=== PATIENT | male | born 1985 | race Caucasian/White ===

== ENCOUNTER 2020-09-29 01:58 | Emergency (ER) | payer BC ==
[2020-09-29] MEDS ORDERED: MORPHINE SULFATE 4 MG/ML SYRINGE IV STA (02:02)
[2020-09-29] MEDS ORDERED: SODIUM CHLORIDE 0.9% 1,000 ML IV STA (02:02)
[2020-09-29] MEDS ORDERED: PANTOPRAZOLE 40 MG/10 ML VIAL IVP STA (02:02)
[2020-09-29] MEDS ORDERED: ONDANSETRON 4 MG/2 ML VIAL IVP STA (02:02)
--- NOTE | 2020-09-29 02:03 | ED ---
Abdominal Pain HPI - General Stated Complaint: Abd Pain Time Seen by Provider: 09/29/20 02:01 - Related Data Home Medications Medication Instructions Recorded Confirmed Dextroamphetamine/Amphetamine 20 mg PO BID 04/19/16 04/19/16 [Adderall] Pantoprazole Sodium [Protonix] 40 mg PO DAILY 04/19/16 04/19/16 Zolpidem [Ambien] 12.5 mg PO HS PRN 04/19/16 04/19/16 Previous Rx's Medication Instructions Recorded Dicyclomine HCl [Bentyl] 20 mg PO QID #10 tab 04/19/16 Ondansetron Odt [Zofran Odt] 4 mg PO Q8HR PRN #10 tab 04/19/16 Allergies Allergy/AdvReac Type Severity Reaction Status Date / Time bee venom protein (honey bee) AdvReac Swelling Verified 09/29/20 02:24 tree nut AdvReac Swelling Verified 09/29/20 02:24 Review of Systems ROS Statement: Those systems with pertinent positive or pertinent negative responses have been documented in the HPI. ROS Other: All systems not noted in ROS Statement are negative. Past Medical History Past Medical History: Asthma Additional Past Medical History / Comment(s): stomach ulcers, hernias History of Any Multi-Drug Resistant Organisms: None Reported Past Surgical History: No Surgical Hx Reported Past Psychological History: Anxiety, No Psychological Hx Reported Course Vital Signs 09/29/20 09/29/20 01:59 03:42 Temperature 97.7 F Pulse Rate 80 81 Respiratory 18 18 Rate Blood Pressure 128/82 110/68 O2 Sat by Pulse 98 96 Oximetry Medical Decision Making - Lab Data Result diagrams: 09/29/20 02:18 09/29/20 02:18 Lab Results 09/29/20 09/29/20 Range/Units 02:18 02:18 WBC 16.2 H (3.8-10.6) k/uL RBC 5.41 (4.30-5.90) m/uL Hgb 16.2 (13.0-17.5) gm/dL Hct 47.8 (39.0-53.0) % MCV 88.2 (80.0-100.0) fL MCH 30.0 (25.0-35.0) pg MCHC 34.0 (31.0-37.0) g/dL RDW 13.3 (11.5-15.5) % Plt Count 279 (150-450) k/uL MPV 8.2 Neutrophils % 66 % Lymphocytes % 23 % Monocytes % 6 % Eosinophils % 2 % Basophils % 1 % Neutrophils # 10.6 H (1.3-7.7) k/uL Lymphocytes # 3.8 (1.0-4.8) k/uL Monocytes # 1.0 (0-1.0) k/uL Eosinophils # 0.3 (0-0.7) k/uL Basophils # 0.2 (0-0.2) k/uL Sodium 139 (137-145) mmol/L Potassium 4.8 (3.5-5.1) mmol/L Chloride 104 (98-107) mmol/L Carbon Dioxide 24 (22-30) mmol/L Anion Gap 11 mmol/L BUN 10 (9-20) mg/dL Creatinine 0.76 (0.66-1.25) mg/dL Est GFR (CKD-EPI)AfAm >90 (>60 ml/min/1.73 sqM) Est GFR (CKD-EPI)NonAf >90 (>60 ml/min/1.73 sqM) Glucose 106 H (74-99) mg/dL Calcium 9.8 (8.4-10.2) mg/dL Total Bilirubin 0.4 (0.2-1.3) mg/dL AST 46 (17-59) U/L ALT 49 (4-49) U/L Alkaline Phosphatase 84 (38-126) U/L Total Protein 7.1 (6.3-8.2) g/dL Albumin 4.7 (3.5-5.0) g/dL Amylase 52 (30-110) U/L Lipase 88 (23-300) U/L Disposition Clinical Impression: Abdominal pain Disposition: HOME SELF-CARE Condition: Good Instructions (If sedation given, give patient instructions): Abdominal Pain (ED) Is patient prescribed a controlled substance at d/c from ED?: No Referrals: Dustin Arciniega MD [Primary Care Provider] - 1-2 days
[2020-09-29 02:08] VITALS: TEMP 97.7
[2020-09-29 02:33] LABS: Basophils # (A) 0.2 k/uL (0-0.2); Basophils % (A) 1 %; Eosinophils # (A) 0.3 k/uL (0-0.7); Eosinophils % (A) 2 %; HCT 47.8 % (39.0-53.0); HGB 16.2 gm/dL (13.0-17.5); Lymphocytes # (A) 3.8 k/uL (1.0-4.8); Lymphocytes % (A) 23 %; MCV 88.2 fL (80.0-100.0); Mean Platelet Volume 8.2; Monocytes % (A) 6 %; Neutrophils # (A) 10.6 k/uL (1.3-7.7); Neutrophils % (A) 66 %; Platelet Count 279 k/uL (150-450); RBC 5.41 m/uL (4.30-5.90); RDW 13.3 % (11.5-15.5); WBC 16.2 k/uL (3.8-10.6)
[2020-09-29 02:35] LABS: ALT 49 U/L (4-49); AST 46 U/L (17-59); African American GFR (CKD) >90 (>60 ml/min/1.73 sqM); Albumin 4.7 g/dL (3.5-5.0); Alkaline Phosphatase 84 U/L (38-126); Amylase 52 U/L (30-110); Anion Gap 11 mmol/L; Blood Urea Nitrogen 10 mg/dL (9-20); Calcium 9.8 mg/dL (8.4-10.2); Carbon Dioxide 24 mmol/L (22-30); Chloride 104 mmol/L (98-107); Glucose 106 mg/dL (74-99); Lipase 88 U/L (23-300); Non-African American GFR(CKD) >90 (>60 ml/min/1.73 sqM); Potassium 4.8 mmol/L (3.5-5.1); Sodium 139 mmol/L (137-145); Total Bilirubin 0.4 mg/dL (0.2-1.3); Total Protein 7.1 g/dL (6.3-8.2)
[2020-09-29] MEDS ORDERED: MAG HYDROX/AL HYDROX/SIMETH 30 ML, HYOSCYAMINE ELIXIR 10 ML, LIDOCAINE VISCOUS 2% 10 ML PO STA ×3 (04:21)
--- NOTE | 2020-09-29 04:43 | CT ---
EXAM: CT Abdomen and Pelvis With Intravenous Contrast CLINICAL HISTORY: ITS.REASON CT Reason: pain TECHNIQUE: Axial computed tomography images of the abdomen and pelvis with intravenous contrast. CTDI is 47.17 mGy and DLP is 2431.5 mGy-cm. This CT exam was performed using one or more of the following dose reduction techniques: automated exposure control, adjustment of the mA and/or kV according to patient size, and/or use of iterative reconstruction technique. COMPARISON: No relevant prior studies available. FINDINGS: Lung bases: Bibasilar atelectasis. ABDOMEN: Liver: Hepatic steatosis. Gallbladder and bile ducts: Unremarkable. Pancreas: Unremarkable. Spleen: Unremarkable. Adrenals: Unremarkable. Kidneys and ureters: Unremarkable. Stomach and bowel: Unremarkable. PELVIS: Appendix: No findings to suggest acute appendicitis. Bladder: Unremarkable. Reproductive: Unremarkable as visualized. ABDOMEN and PELVIS: Intraperitoneal space: Unremarkable. Bones/joints: No acute fracture. No dislocation. Soft tissues: Unremarkable. Vasculature: Vascular calcifications. Lymph nodes: Unremarkable. IMPRESSION: No acute findings in the abdomen or pelvis.
[2020-09-29 05:08] VITALS: BP 113/63; PULSE 100; RESP 16
--- NOTE | 2020-09-29 07:20 | XR ---
KUB HISTORY: Pain KUB submitted on [address] scan 09/29/2020 There are phleboliths within the pelvis. No evident bowel obstruction or pneumoperitoneum. Bone fur examiner alization is within normal limits. Lung bases are remarkable for probable basilar atelectatic change. The entire abdomen is not included on exam. IMPRESSION: Incomplete exam, see dictated report CT scan same date. Basilar atelectasis.
== END 2020-09-29 05:35 | disposition home or self-care (01) ==
LOC: EC 01:58
DX: R10.9 Unspecified abdominal pain (principal); J45.909 Unspecified asthma, uncomplicated; F41.9 Anxiety disorder, unspecified
CPT/HCPCS: 36415; 80053; 82150; 83690; 85025; 74018; 74177; 99285; 96374; 96375; J2270; C9113; Q9967; 96361

== ENCOUNTER 2020-11-25 23:35 | Inpatient (IN) | payer BC, OTHER ==
[2020-11-25 23:43] LABS: Glucose,Whole Blood 110 mg/dL (75-99)
[2020-11-25] MEDS ORDERED: SODIUM CHLORIDE 0.9% 1,000 ML IV STA (23:45)
[2020-11-25] MEDS ORDERED: HYDROmorphone 1 MG/ML 1 ML SYRINGE IVP STA (23:47)
[2020-11-25] MEDS ORDERED: LORazepam 2 MG/ML INJ IV STA (23:47)
[2020-11-25] MEDS ORDERED: DIPH,PERTUS(ACELL)TETVAC-LF 0.5 ML VIAL IM ONE (23:48)
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
[2020-11-26] MEDS ORDERED: HYDROmorphone 1 MG/ML 1 ML SYRINGE IVP STA ×3 (00:05→04:38)
[2020-11-26 00:29] LABS: Basophils # (A) 0.2 k/uL (0-0.2); Basophils % (A) 1 %; Eosinophils # (A) 0.1 k/uL (0-0.7); Eosinophils % (A) 0 %; HCT 47.8 % (39.0-53.0); HGB 15.8 gm/dL (13.0-17.5); Lymphocytes # (A) 3.8 k/uL (1.0-4.8); Lymphocytes % (A) 19 %; MCH 30.4 pg (25.0-35.0); MCV 92.2 fL (80.0-100.0); Mean Platelet Volume 8.2; Monocytes # (A) 1.3 k/uL (0-1.0); Monocytes % (A) 6 %; Neutrophils # (A) 14.9 k/uL (1.3-7.7); Neutrophils % (A) 73 %; Platelet Count 284 k/uL (150-450); RBC 5.18 m/uL (4.30-5.90); RDW 13.7 % (11.5-15.5); WBC 20.6 k/uL (3.8-10.6)
[2020-11-26 00:43] LABS: ALT 57 U/L (4-49); AST 71 U/L (17-59); African American GFR (CKD) >90 (>60 ml/min/1.73 sqM); Albumin 4.1 g/dL (3.5-5.0); Alcohol 12 mg/dL; Alkaline Phosphatase 82 U/L (38-126); Anion Gap 12 mmol/L; Blood Urea Nitrogen 16 mg/dL (9-20); Calcium 9.3 mg/dL (8.4-10.2); Carbon Dioxide 21 mmol/L (22-30); Chloride 105 mmol/L (98-107); Creatine Kinase 345 U/L (55-170); Glucose 114 mg/dL (74-99); Non-African American GFR(CKD) >90 (>60 ml/min/1.73 sqM); Potassium 4.1 mmol/L (3.5-5.1); Sodium 138 mmol/L (137-145); Total Bilirubin 0.2 mg/dL (0.2-1.3); Total Protein 6.4 g/dL (6.3-8.2)
[2020-11-26] MEDS ORDERED: KETOROLAC 15 MG/ML 1 ML VIAL IVP STA (00:44)
[2020-11-26] MEDS ORDERED: ACETAMINOPHEN IV (For NPO) 1,000 MG in EMPTY BAG 1 BAG IVPB STA (00:44)
[2020-11-26] MEDS ORDERED: DIAZEPAM 5 MG/ML 2 ML INJ IVP STA (00:44)
[2020-11-26] MEDS ORDERED: LORazepam 2 MG/ML INJ IV PRN ×2 (00:49)
[2020-11-26] MEDS ORDERED: THIAMINE 100 MG/ML 2 ML VIAL IM STA (00:49)
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
--- NOTE | 2020-11-26 01:07 | XR ---
EXAMINATION TYPE: XR foot complete RT DATE OF EXAM: 11/26/2020 COMPARISON: NONE HISTORY: Pain TECHNIQUE: 3 views FINDINGS: There is an Achilles calcaneal spur. Metatarsals are intact. There is comminuted fracture of the base of the proximal phalanx of the little toe right foot. There is no dislocation. There is no significant displacement. IMPRESSION: Comminuted intra-articular fracture of the little toe at the base of the proximal phalanx .
--- NOTE | 2020-11-26 01:08 | XR ---
EXAMINATION TYPE: XR wrist complete RT DATE OF EXAM: 11/26/2020 COMPARISON: NONE HISTORY: Pain TECHNIQUE: 4 views FINDINGS: Carpal bones are intact. I see no fracture nor dislocation. Scaphoid appears normal. IMPRESSION: Negative right wrist exam.
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
[2020-11-26 02:02] LABS: INR 0.9 (<1.2); Partial Thromboplastin Time 23.2 sec (22.0-30.0)
[2020-11-26] MEDS ORDERED: KETAMINE 10 MG/ML 20 ML VIAL IV ONE ×3 (02:07→04:19)
[2020-11-26] MEDS ORDERED: KETOROLAC 15 MG/ML 1 ML VIAL IVP PRN (02:20)
[2020-11-26] MEDS ORDERED: ONDANSETRON 4 MG/2 ML VIAL IVP PRN (02:20)
[2020-11-26] MEDS ORDERED: NALOXONE 0.4 MG/ML 1 ML VIAL IV PRN (02:20)
[2020-11-26 03:54] LABS: Appearance,Urine Clear (Clear); Bilirubin,Urine Negative (Negative); Blood,Urine Negative (Negative); Color,Urine Yellow; Glucose,Urine (UA) Negative (Negative); Ketones,Urine Negative (Negative); Leukocyte Esterase,Urine Negative (Negative); Nitrite,Urine Negative (Negative); Protein,Urine Trace (Negative); Urobilinogen,Urine <2.0 mg/dL (<2.0)
[2020-11-26 03:58] LABS: Amphetamine Screen,Urine Not Detected (NotDetected); Barbiturate Screen,Urine Not Detected (NotDetected); Benzodiazepines Screen,Urine Detected (NotDetected); Cocaine Screen,Urine Not Detected (NotDetected); Methadone Screen, Urine Not Detected (NotDetected); Opiate Screen,Urine Detected (NotDetected); Oxycodone Screen, Urine Not Detected (NotDetected); Phencyclidine Screen,Urine Not Detected (NotDetected); Tricyclic Antidepressant,Urine Detected (NotDetected); Urn Cannabinoid Scrn Not Detected (NotDetected)
[2020-11-26 03:59] LABS: Specific Gravity,Urine >1.050 (1.001-1.035)
[2020-11-26] MEDS: SODIUM CHLORIDE 0.9% 1,000 ML IV SCH ×3 (05:08→20:25)
[2020-11-26] MEDS: HYDROmorphone 1 MG/ML 1 ML SYRINGE IVP PRN ×4 (09:06→20:23)
[2020-11-26] MEDS: IPRATROPIUM-ALBUTEROL 3 ML NEB INHALATION SCH ×3 (10:55→21:45)
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
[2020-11-26] MEDS ORDERED: BACITRACIN OINT 1 EACH PACKET TOPICAL SCH (13:45)
[2020-11-26] MEDS: PANTOPRAZOLE 40 MG TABLET PO SCH (13:49)
[2020-11-26] MEDS: NICOTINE 21MG/24HR PATCH TRANSDERM SCH (13:49)
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
[2020-11-26] MEDS: PETROLAT,WHITE/LAN/8-HYDROXYQU 227 GM OINT TOPICAL SCH (17:30)
[2020-11-26] MEDS: BACITRACIN ZINC 500 UNIT/GM OINT 28.4 GM TUBE TOPICAL SCH (17:30)
[2020-11-26] MEDS: THIAMINE 100 MG TAB PO SCH (18:09)
[2020-11-26] MEDS: HYDROcodone/APAP 5-325MG 1 EACH TAB PO PRN (19:03)
[2020-11-26] MEDS: ACETAMINOPHEN TAB 325 MG TAB PO PRN (19:03)
[2020-11-26] MEDS: FAMOTIDINE 20 MG TAB PO SCH (22:07)
[2020-11-26] MEDS: busPIRone HCl 5 MG TAB PO SCH (22:07)
[2020-11-26] MEDS: MIRTAZAPINE 15 MG TAB PO SCH (22:07)
[2020-11-26] MEDS: MONTELUKAST 10 MG TAB PO SCH (22:08)
[2020-11-26] MEDS: HEPARIN SODIUM,PORCINE/PF 5,000 UNIT/0.5 ML SYRINGE SQ SCH (22:08)
[2020-11-26] MEDS: hydrOXYzine pamoate 25 MG CAP PO PRN (22:12)
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
[2020-11-26] MEDS: QUEtiapine 100 MG TAB PO SCH (22:58)
[2020-11-26] MEDS ORDERED: HYDROmorphone 1 MG/ML 1 ML SYRINGE ONE (23:39)
[2020-11-27] MEDS: IPRATROPIUM-ALBUTEROL 3 ML NEB INHALATION SCH ×4 (08:17→21:08)
[2020-11-27] MEDS: PANTOPRAZOLE 40 MG TABLET PO SCH (08:36)
[2020-11-27] MEDS: THIAMINE 100 MG TAB PO SCH ×2 (08:36→16:25)
[2020-11-27] MEDS: busPIRone HCl 5 MG TAB PO SCH ×2 (08:36→21:26)
[2020-11-27] MEDS: HEPARIN SODIUM,PORCINE/PF 5,000 UNIT/0.5 ML SYRINGE SQ SCH ×2 (08:36→21:25)
[2020-11-27] MEDS: FAMOTIDINE 20 MG TAB PO SCH (08:36)
[2020-11-27] MEDS: HYDROmorphone 1 MG/ML 1 ML SYRINGE IVP PRN ×4 (08:37→22:57)
[2020-11-27] MEDS: NICOTINE 21MG/24HR PATCH TRANSDERM SCH (08:37)
[2020-11-27 10:42] LABS: Basophils # (A) 0.05 X 10*3/uL (0.00-0.10); Basophils % (A) 0.5 %; Eosinophils # (A) 0 X 10*3/uL (0.04-0.35); Eosinophils % (A) 0 %; HCT 47.5 % (39.6-50.0); HGB 15.4 g/dL (13.0-17.0); Lymphocytes # (A) 2.03 X 10*3/uL (0.90-5.00); Lymphocytes % (A) 21.9 %; MCH 30.3 pg (27.0-32.0); MCHC 32.4 g/dL (32.0-37.0); MCV 93.3 fL (80.0-97.0); Mean Platelet Volume 10.6 fL (9.5-12.2); Monocytes # (A) 1.01 X 10*3/uL (0.20-1.00); Monocytes % (A) 10.9 %; Neutrophils # (A) 6.13 X 10*3/uL (1.80-7.70); Neutrophils % (A) 66.3 %; Platelet Count 216 X 10*3/uL (140-440); RBC 5.09 X 10*6/uL (4.40-5.60); RDW 14.5 % (11.5-14.5); WBC 9.26 X 10*3/uL (4.50-10.00)
[2020-11-27] MEDS: PETROLAT,WHITE/LAN/8-HYDROXYQU 227 GM OINT TOPICAL SCH (11:03)
[2020-11-27] MEDS: BACITRACIN ZINC 500 UNIT/GM OINT 28.4 GM TUBE TOPICAL SCH (11:04)
[2020-11-27] MEDS: LEVOMILNACIPRAN HCL 20 MG PO SCH (11:04)
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
[2020-11-27 11:54] LABS: African American GFR (CKD) 132.3 (60.0-200.0); Anion Gap 9.5 mmol/L (4.00-12.00); BUN/Creat Ratio 16.25 Ratio (12.00-20.00); Calcium 8.3 mg/dL (8.7-10.3); Carbon Dioxide 21.5 mmol/L (21.6-31.8); Non-African American GFR(CKD) 114.1 (60.0-200.0); Potassium 4.2 mmol/L (3.5-5.5)
[2020-11-27] MEDS: HYDROcodone/APAP 5-325MG 1 EACH TAB PO PRN ×2 (12:55→21:25)
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
[2020-11-27] MEDS: ACETAMINOPHEN TAB 325 MG TAB PO PRN (16:24)
[2020-11-27] MEDS: KETOROLAC 15 MG/ML 1 ML VIAL IVP SCH ×2 (16:25→22:57)
[2020-11-27] MEDS: SODIUM CHLORIDE 0.9% 1,000 ML IV SCH ×3 (19:00→19:02)
[2020-11-27] MEDS: MONTELUKAST 10 MG TAB PO SCH (21:25)
[2020-11-27] MEDS: QUEtiapine 100 MG TAB PO SCH (21:26)
[2020-11-27] MEDS: MIRTAZAPINE 15 MG TAB PO SCH (21:26)
[2020-11-27] MEDS ORDERED: ACETAMINOPHEN TAB 325 MG TAB ONE (23:59)
[2020-11-27] MEDS ORDERED: HYDROmorphone 1 MG/ML 1 ML SYRINGE ONE (23:59)
[2020-11-27] MEDS ORDERED: SODIUM CHLORIDE 0.9% 1,000 ML BAG ONE (23:59)
[2020-11-28] MEDS: SODIUM CHLORIDE 0.9% 1,000 ML IV SCH ×3 (00:56→19:19)
[2020-11-28] MEDS: KETOROLAC 15 MG/ML 1 ML VIAL IVP SCH ×4 (05:17→23:17)
[2020-11-28] MEDS: HYDROmorphone 1 MG/ML 1 ML SYRINGE IVP PRN ×3 (08:45→14:27)
[2020-11-28] MEDS: busPIRone HCl 5 MG TAB PO SCH ×2 (08:45→21:01)
[2020-11-28] MEDS: THIAMINE 100 MG TAB PO SCH ×2 (08:46→16:00)
[2020-11-28] MEDS: NICOTINE 21MG/24HR PATCH TRANSDERM SCH (08:46)
[2020-11-28] MEDS: HEPARIN SODIUM,PORCINE/PF 5,000 UNIT/0.5 ML SYRINGE SQ SCH ×2 (08:46→21:01)
[2020-11-28] MEDS: PANTOPRAZOLE 40 MG TABLET PO SCH (08:46)
[2020-11-28] MEDS: BACITRACIN ZINC 500 UNIT/GM OINT 28.4 GM TUBE TOPICAL SCH (08:46)
[2020-11-28] MEDS: PETROLAT,WHITE/LAN/8-HYDROXYQU 227 GM OINT TOPICAL SCH (08:46)
[2020-11-28] MEDS: IPRATROPIUM-ALBUTEROL 3 ML NEB INHALATION SCH ×4 (08:59→21:41)
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
[2020-11-28] MEDS: HYDROmorphone 0.5 MG/0.5 ML SYRINGE IVP PRN ×4 (11:31→23:18)
[2020-11-28] MEDS: HYDROcodone/APAP 5-325MG 1 EACH TAB PO PRN (12:16)
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
[2020-11-28] MEDS: LEVOMILNACIPRAN HCL 20 MG PO SCH (13:26)
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
[2020-11-28] MEDS: DOCUSATE 100 MG CAP PO SCH ×2 (16:00→21:01)
[2020-11-28] MEDS: QUEtiapine 100 MG TAB PO SCH (21:01)
[2020-11-28] MEDS: MIRTAZAPINE 15 MG TAB PO SCH (21:01)
[2020-11-28] MEDS: MONTELUKAST 10 MG TAB PO SCH (21:01)
[2020-11-29] MEDS: SODIUM CHLORIDE 0.9% 1,000 ML IV SCH ×3 (00:25→20:10)
[2020-11-29] MEDS: HYDROmorphone 0.5 MG/0.5 ML SYRINGE IVP PRN ×2 (03:38→18:00)
[2020-11-29] MEDS: KETOROLAC 15 MG/ML 1 ML VIAL IVP SCH ×4 (05:11→23:51)
[2020-11-29] MEDS: LEVOMILNACIPRAN HCL 20 MG PO SCH (07:05)
[2020-11-29] MEDS: IPRATROPIUM-ALBUTEROL 3 ML NEB INHALATION SCH ×4 (08:35→21:01)
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
[2020-11-29] MEDS: HEPARIN SODIUM,PORCINE/PF 5,000 UNIT/0.5 ML SYRINGE SQ SCH ×2 (08:52→20:11)
[2020-11-29] MEDS: NICOTINE 21MG/24HR PATCH TRANSDERM SCH (08:52)
[2020-11-29] MEDS: HYDROmorphone 1 MG/ML 1 ML SYRINGE IVP PRN ×4 (08:52→23:50)
[2020-11-29] MEDS: busPIRone HCl 5 MG TAB PO SCH ×2 (08:53→20:11)
[2020-11-29] MEDS: PANTOPRAZOLE 40 MG TABLET PO SCH (08:53)
[2020-11-29] MEDS: DOCUSATE 100 MG CAP PO SCH ×2 (08:53→20:11)
[2020-11-29] MEDS: THIAMINE 100 MG TAB PO SCH ×2 (08:53→15:54)
[2020-11-29] MEDS: HYDROcodone/APAP 5-325MG 1 EACH TAB PO PRN (10:07)
[2020-11-29] MEDS: PETROLAT,WHITE/LAN/8-HYDROXYQU 227 GM OINT TOPICAL SCH (10:33)
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
[2020-11-29] MEDS: BACITRACIN ZINC 500 UNIT/GM OINT 28.4 GM TUBE TOPICAL SCH (13:35)
[2020-11-29] MEDS: HYDROPHILIC CREAM 180 GM TUBE TOPICAL SCH (15:55)
[2020-11-29] MEDS: MIRTAZAPINE 15 MG TAB PO SCH (20:11)
[2020-11-29] MEDS: QUEtiapine 100 MG TAB PO SCH (20:11)
[2020-11-29] MEDS: MONTELUKAST 10 MG TAB PO SCH (20:12)
[2020-11-30] MEDS: SODIUM CHLORIDE 0.9% 1,000 ML IV SCH ×4 (00:35→18:27)
[2020-11-30] MEDS: KETOROLAC 15 MG/ML 1 ML VIAL IVP SCH ×3 (05:43→18:30)
[2020-11-30] MEDS: HYDROmorphone 1 MG/ML 1 ML SYRINGE IVP PRN ×5 (05:43→22:49)
[2020-11-30] MEDS: IPRATROPIUM-ALBUTEROL 3 ML NEB INHALATION SCH ×4 (08:07→20:10)
[2020-11-30] MEDS: busPIRone HCl 5 MG TAB PO SCH ×2 (08:50→22:51)
[2020-11-30] MEDS: THIAMINE 100 MG TAB PO SCH ×2 (08:50→18:31)
[2020-11-30] MEDS: PANTOPRAZOLE 40 MG TABLET PO SCH (08:50)
[2020-11-30] MEDS: DOCUSATE 100 MG CAP PO SCH ×2 (08:50→22:51)
[2020-11-30] MEDS: NICOTINE 21MG/24HR PATCH TRANSDERM SCH (08:51)
[2020-11-30] MEDS: HEPARIN SODIUM,PORCINE/PF 5,000 UNIT/0.5 ML SYRINGE SQ SCH ×3 (10:20→22:51)
[2020-11-30] MEDS: LORazepam 2 MG/ML INJ IV PRN (10:39)
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
[2020-11-30] MEDS: LEVOMILNACIPRAN HCL 20 MG PO SCH ×3 (11:32→16:03)
[2020-11-30 11:48] LABS: ALT 49 U/L (4-49); African American GFR (CKD) >90 (>60 ml/min/1.73 sqM); Albumin 2.9 g/dL (3.5-5.0); Albumin/Globulin Ratio 1.2; Anion Gap 7 mmol/L; Blood Urea Nitrogen 13 mg/dL (9-20); Calcium 8.4 mg/dL (8.4-10.2); Carbon Dioxide 18 mmol/L (22-30); Chloride 111 mmol/L (98-107); Globulin 2.5 g/dL; Glucose 102 mg/dL (74-99); Non-African American GFR(CKD) >90 (>60 ml/min/1.73 sqM); Sodium 136 mmol/L (137-145); Total Bilirubin 1.2 mg/dL (0.2-1.3); Total Protein 5.4 g/dL (6.3-8.2)
[2020-11-30 12:00] LABS: AST 70 U/L (17-59); Alkaline Phosphatase 53 U/L (38-126); Potassium 4.9 mmol/L (3.5-5.1)
[2020-11-30] MEDS: HYDROcodone/APAP 5-325MG 1 EACH TAB PO PRN (14:06)
[2020-11-30 14:14] LABS: HCT 37.1 % (39.0-53.0); MCH 31.6 pg (25.0-35.0); MCHC 34.4 g/dL (31.0-37.0); MCV 91.6 fL (80.0-100.0); Mean Platelet Volume 9.6; Platelet Count 227 k/uL (150-450); RBC 4.05 m/uL (4.30-5.90); RDW 13.6 % (11.5-15.5); WBC 11.8 k/uL (3.8-10.6)
[2020-11-30 14:17] LABS: HGB 12.8 gm/dL (13.0-17.5)
[2020-11-30 14:24] LABS: Band Neutrophils % 3 %; Basophils # (M) 0.12 k/uL (0-0.2); Lymphocytes # (M) 1.18 k/uL (1.0-4.8); Monocytes # (M) 0.83 k/uL (0-1.0); Neutrophils % (M) 79 %; Nucleated Red Blood Cells 0 /100 WBC (0-0); Total Cells Counted 100
[2020-11-30] MEDS: HYDROPHILIC CREAM 180 GM TUBE TOPICAL SCH (15:18)
[2020-11-30] MEDS ORDERED: HYDROmorphone 1 MG/ML 1 ML SYRINGE IVP STA (15:40)
[2020-11-30] MEDS: QUEtiapine 100 MG TAB PO SCH (22:51)
[2020-11-30] MEDS: MIRTAZAPINE 15 MG TAB PO SCH (22:51)
[2020-11-30] MEDS: MONTELUKAST 10 MG TAB PO SCH (22:54)
[2020-12-01] MEDS: KETOROLAC 15 MG/ML 1 ML VIAL IVP SCH ×5 (00:05→23:16)
[2020-12-01] MEDS: HYDROcodone/APAP 5-325MG 1 EACH TAB PO PRN ×4 (01:54→23:15)
[2020-12-01] MEDS: ACETAMINOPHEN TAB 325 MG TAB PO PRN (01:54)
[2020-12-01] MEDS: SODIUM CHLORIDE 0.9% 1,000 ML IV SCH ×2 (05:38→18:20)
[2020-12-01] MEDS: HYDROmorphone 1 MG/ML 1 ML SYRINGE IVP PRN ×6 (05:38→22:19)
[2020-12-01] MEDS: IPRATROPIUM-ALBUTEROL 3 ML NEB INHALATION SCH ×4 (08:31→18:02)
[2020-12-01] MEDS: HEPARIN SODIUM,PORCINE/PF 5,000 UNIT/0.5 ML SYRINGE SQ SCH ×2 (08:41→20:30)
[2020-12-01] MEDS: NICOTINE 21MG/24HR PATCH TRANSDERM SCH (08:42)
[2020-12-01] MEDS: THIAMINE 100 MG TAB PO SCH ×2 (08:42→17:25)
[2020-12-01] MEDS: busPIRone HCl 5 MG TAB PO SCH ×2 (08:42→20:29)
[2020-12-01] MEDS: PANTOPRAZOLE 40 MG TABLET PO SCH (08:42)
[2020-12-01] MEDS: DOCUSATE 100 MG CAP PO SCH ×2 (08:43→20:30)
[2020-12-01] MEDS: LEVOMILNACIPRAN HCL 20 MG PO SCH (08:43)
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
[2020-12-01] MEDS ORDERED: HYDROmorphone 1 MG/ML 1 ML SYRINGE IVP PRN (10:54)
[2020-12-01] MEDS: hydrOXYzine pamoate 25 MG CAP PO PRN ×2 (12:10→20:30)
[2020-12-01] MEDS ORDERED: VANCOMYCIN 2,250 MG in SODIUM CHLORIDE 0.9% 500 ML 500 ML IVPB ONE ×2 (15:45→17:45)
[2020-12-01] MEDS: HYDROPHILIC CREAM 180 GM TUBE TOPICAL SCH (16:41)
[2020-12-01] MEDS: LORazepam 2 MG/ML INJ IV PRN (16:42)
[2020-12-01] MEDS ORDERED: VANCOMYCIN IV PER PHARMACY 1 EACH MISC MISCELLANE PRN (17:25)
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
[2020-12-01] MEDS: MIRTAZAPINE 15 MG TAB PO SCH (18:30)
[2020-12-01] MEDS: QUEtiapine 100 MG TAB PO SCH (20:30)
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
[2020-12-02] MEDS: HEPARIN SODIUM,PORCINE/PF 5,000 UNIT/0.5 ML SYRINGE SQ SCH ×4 (01:24→23:51)
[2020-12-02] MEDS: VANCOMYCIN 2,000 MG in SODIUM CHLORIDE 0.9% 500 ML 500 ML IVPB SCH ×2 (01:24→11:55)
[2020-12-02] MEDS: SODIUM CHLORIDE 0.9% 1,000 ML IV SCH ×4 (01:26→23:51)
[2020-12-02] MEDS: HYDROmorphone 1 MG/ML 1 ML SYRINGE IVP PRN ×7 (05:16→21:45)
[2020-12-02] MEDS: KETOROLAC 15 MG/ML 1 ML VIAL IVP SCH ×2 (05:58→11:33)
[2020-12-02 06:05] LABS: African American GFR (CKD) >90 (>60 ml/min/1.73 sqM); Anion Gap 5 mmol/L; Blood Urea Nitrogen 11 mg/dL (9-20); Calcium 8.4 mg/dL (8.4-10.2); Carbon Dioxide 19 mmol/L (22-30); Chloride 112 mmol/L (98-107); Glucose 89 mg/dL (74-99); Non-African American GFR(CKD) >90 (>60 ml/min/1.73 sqM); Sodium 136 mmol/L (137-145)
[2020-12-02 06:12] LABS: HCT 36.8 % (39.0-53.0); HGB 11.6 gm/dL (13.0-17.5); Hypochromasia Marked; MCH 31.6 pg (25.0-35.0); MCHC 31.6 g/dL (31.0-37.0); Mean Platelet Volume 8.6; Platelet Count 263 k/uL (150-450); RBC 3.69 m/uL (4.30-5.90); RDW 13.5 % (11.5-15.5); WBC 8.5 k/uL (3.8-10.6)
[2020-12-02 06:18] LABS: MCV 99.8 fL (80.0-100.0)
[2020-12-02 06:44] LABS: Band Neutrophils % 2 %; Eosinophils # (M) 0.09 k/uL (0-0.7); Neutrophils % (M) 63 %; Nucleated Red Blood Cells 0 /100 WBC (0-0); Total Cells Counted 100
[2020-12-02] MEDS: THIAMINE 100 MG TAB PO SCH ×2 (07:22→17:21)
[2020-12-02] MEDS: PANTOPRAZOLE 40 MG TABLET PO SCH (07:22)
[2020-12-02] MEDS: MONTELUKAST 10 MG TAB PO SCH ×2 (07:22→07:32)
[2020-12-02] MEDS: NICOTINE 21MG/24HR PATCH TRANSDERM SCH (07:22)
[2020-12-02] MEDS: busPIRone HCl 5 MG TAB PO SCH ×2 (07:22→21:24)
[2020-12-02] MEDS: DOCUSATE 100 MG CAP PO SCH ×2 (07:23→21:24)
[2020-12-02] MEDS: HYDROPHILIC CREAM 180 GM TUBE TOPICAL SCH (07:23)
[2020-12-02] MEDS: LEVOMILNACIPRAN HCL 20 MG PO SCH (07:31)
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
[2020-12-02] MEDS: IPRATROPIUM-ALBUTEROL 3 ML NEB INHALATION SCH ×4 (09:19→19:30)
[2020-12-02] MEDS: LORazepam 2 MG/ML INJ IV PRN ×2 (11:00→16:06)
[2020-12-02] MEDS: HYDROcodone/APAP 5-325MG 1 EACH TAB PO PRN ×3 (11:33→23:54)
[2020-12-02] MEDS: hydrOXYzine pamoate 25 MG CAP PO PRN (11:34)
[2020-12-02] MEDS: CEFEPIME 2 GM in SODIUM CHLORIDE 0.9% 100 ML IVPB SCH ×2 (11:53→17:22)
[2020-12-02] MEDS ORDERED: HYDROmorphone 1 MG/ML 1 ML SYRINGE IVP STA (12:08)
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
[2020-12-02] MEDS: QUEtiapine 100 MG TAB PO SCH (21:23)
[2020-12-02] MEDS: MIRTAZAPINE 15 MG TAB PO SCH (21:24)
[2020-12-03] MEDS: HYDROmorphone 1 MG/ML 1 ML SYRINGE IVP PRN ×9 (00:47→21:22)
[2020-12-03] MEDS: CEFEPIME 2 GM in SODIUM CHLORIDE 0.9% 100 ML IVPB SCH ×4 (02:29→21:21)
[2020-12-03] MEDS: HYDROcodone/APAP 5-325MG 1 EACH TAB PO PRN (06:16)
[2020-12-03] MEDS: IPRATROPIUM-ALBUTEROL 3 ML NEB INHALATION SCH ×4 (07:32→18:55)
[2020-12-03] MEDS ORDERED: HYDROmorphone 1 MG/ML 1 ML SYRINGE IVP STA (08:22)
[2020-12-03] MEDS: PANTOPRAZOLE 40 MG TABLET PO SCH (08:42)
[2020-12-03] MEDS: HEPARIN SODIUM,PORCINE/PF 5,000 UNIT/0.5 ML SYRINGE SQ SCH ×2 (08:42→15:35)
[2020-12-03] MEDS: MONTELUKAST 10 MG TAB PO SCH (08:43)
[2020-12-03] MEDS: DOCUSATE 100 MG CAP PO SCH ×2 (08:43→21:21)
[2020-12-03] MEDS: THIAMINE 100 MG TAB PO SCH ×2 (08:43→16:19)
[2020-12-03] MEDS: NICOTINE 21MG/24HR PATCH TRANSDERM SCH (08:44)
[2020-12-03] MEDS: HYDROPHILIC CREAM 180 GM TUBE TOPICAL SCH (08:45)
[2020-12-03] MEDS: LEVOMILNACIPRAN HCL 20 MG PO SCH (08:45)
[2020-12-03] MEDS: busPIRone HCl 5 MG TAB PO SCH ×2 (08:46→21:21)
--- NOTE | 2020-12-03 08:56 | PN ---
PROGRESS NOTE DATE OF SERVICE: 12/02/2020. REASON FOR FOLLOW: Left antecubital fossa, abscess from IV site infection. INTERVAL HISTORY: Patient is afebrile. The patient is breathing comfortably. Still complains of significant pain at the time of dressing changes. No chest pain, shortness of breath, cough, no abdominal pain or diarrhea. PHYSICAL EXAMINATION: Blood pressure is 131/86, pulse of 107, temperature 98.1. He is 92% on room air. General description is a middle-aged male up in the chair in no distress. Respiratory system: Unlabored breathing, clear to auscultation anteriorly. Heart S1, S2. Regular rate and rhythm. Abdomen soft, no tenderness. Left antecubital fossa slight swelling. No redness. No drainage. LABS: Hemoglobin is 11.4, white count 8.5. BUN of 11, creatinine 0.62. Local culture with Gram-negative bacilli. Blood culture has been negative. DIAGNOSTIC IMPRESSION AND PLAN: Patient with left antecubital fossa abscess from an IV site which has been discontinued. Culture showing a Gram-negative. Antibiotic adjusted to cefepime while waiting for the ID sensitivity. Local care to continue per wound care team. Continue supportive care. MMODL / IJN: [id number] /
[2020-12-03] MEDS: LORazepam 2 MG/ML INJ IV PRN (09:42)
[2020-12-03] MEDS: HYDROcodone/APAP 7.5-325MG 1 EACH TAB PO PRN ×2 (12:14→18:17)
[2020-12-03] MEDS: hydrOXYzine pamoate 25 MG CAP PO PRN (12:15)
[2020-12-03 12:24] LABS: African American GFR (CKD) >90 (>60 ml/min/1.73 sqM); Non-African American GFR(CKD) >90 (>60 ml/min/1.73 sqM)
[2020-12-03 12:56] VITALS: BMI 39.0
--- NOTE | 2020-12-03 13:06 | PN ---
PROGRESS NOTE DATE OF SERVICE: 12/03/2020 REASON FOR FOLLOW UP: Left antecubital fossa IV site infection. INTERVAL HISTORY: The patient is afebrile. The patient is breathing comfortably. Patient denies having any chest pains. Still has significant pain to his bilateral extremity wound area. No vomiting. No abdominal pain or diarrhea. PHYSICAL EXAMINATION: Blood pressure 125/77 with a pulse of 90, temperature is 97.5. He is 94% on room air. General description is a middle-aged male lying in bed in no distress. Respiratory system: Unlabored breathing, clear to auscultation anteriorly. Heart S1, S2. Regular rate and rhythm. Abdomen soft, no tenderness. Left arm is currently dressed. No drainage on the dressing. LABS: Hemoglobin 11.1, white count 8.5. Local culture now showing Enterobacter and Pseudomonas species. Blood culture negative. DIAGNOSTIC IMPRESSION AND PLAN: Patient with left arm IV site infection. Blood culture negative. Local culture with Enterobacter, Pseudomonas sensitive to Pseudomonas, plan to finish therapy with cefepime. Waiting for the sensitivity to finalize to determine discharge antibiotics. Continue supportive care. MMODL / IJN: [id number] /
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
[2020-12-03] MEDS: SODIUM CHLORIDE 0.9% 1,000 ML IV SCH ×2 (16:39→21:32)
[2020-12-03] MEDS: QUEtiapine 100 MG TAB PO SCH (21:21)
[2020-12-03] MEDS: MIRTAZAPINE 15 MG TAB PO SCH (21:32)
[2020-12-04] MEDS: HYDROcodone/APAP 7.5-325MG 1 EACH TAB PO PRN ×4 (00:54→22:48)
[2020-12-04] MEDS: HYDROmorphone 1 MG/ML 1 ML SYRINGE IVP PRN ×7 (00:54→21:33)
[2020-12-04] MEDS: HEPARIN SODIUM,PORCINE/PF 5,000 UNIT/0.5 ML SYRINGE SQ SCH ×3 (00:55→15:03)
[2020-12-04] MEDS: CEFEPIME 2 GM in SODIUM CHLORIDE 0.9% 100 ML IVPB SCH ×3 (05:27→22:48)
[2020-12-04] MEDS: PANTOPRAZOLE 40 MG TABLET PO SCH (08:09)
[2020-12-04] MEDS: NICOTINE 21MG/24HR PATCH TRANSDERM SCH (08:09)
[2020-12-04] MEDS: busPIRone HCl 5 MG TAB PO SCH ×2 (08:10→21:35)
[2020-12-04] MEDS: MONTELUKAST 10 MG TAB PO SCH (08:10)
[2020-12-04] MEDS: THIAMINE 100 MG TAB PO SCH ×2 (08:10→18:09)
[2020-12-04] MEDS: DOCUSATE 100 MG CAP PO SCH ×2 (08:11→21:35)
[2020-12-04] MEDS: LEVOMILNACIPRAN HCL 20 MG PO SCH (08:12)
[2020-12-04] MEDS: HYDROPHILIC CREAM 180 GM TUBE TOPICAL SCH (08:16)
[2020-12-04] MEDS: IPRATROPIUM-ALBUTEROL 3 ML NEB INHALATION SCH ×4 (08:19→21:00)
[2020-12-04] MEDS: SODIUM CHLORIDE 0.9% 1,000 ML IV SCH ×2 (08:39→12:07)
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
[2020-12-04 12:24] LABS: African American GFR (CKD) >90 (>60 ml/min/1.73 sqM); Anion Gap 5 mmol/L; Blood Urea Nitrogen 14 mg/dL (9-20); Carbon Dioxide 22 mmol/L (22-30); Chloride 109 mmol/L (98-107); Glucose 103 mg/dL (74-99); Non-African American GFR(CKD) >90 (>60 ml/min/1.73 sqM); Sodium 136 mmol/L (137-145)
[2020-12-04 12:27] LABS: Potassium 5.1 mmol/L (3.5-5.1)
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
[2020-12-04] MEDS: LORazepam 2 MG/ML INJ IV PRN (12:49)
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
[2020-12-04 14:25] LABS: WBC 14.8 k/uL (3.8-10.6)
[2020-12-04 14:26] LABS: HCT 43.2 % (39.0-53.0); MCH 31.7 pg (25.0-35.0); MCHC 35.2 g/dL (31.0-37.0); Mean Platelet Volume 10.3; Platelet Count 284 k/uL (150-450); RBC 4.79 m/uL (4.30-5.90)
[2020-12-04 14:30] LABS: HGB 15.2 gm/dL (13.0-17.5)
[2020-12-04 14:31] LABS: MCV 90.1 fL (80.0-100.0)
--- NOTE | 2020-12-04 16:53 | PN ---
PROGRESS NOTE DATE OF SERVICE: 12/04/2020 REASON FOR FOLLOWUP: Left antecubital fossa IV site infection. INTERVAL HISTORY: Patient is afebrile. The patient is breathing comfortably. Patient denies having any chest pain, no shortness of breath or cough. Still complaining of significant pain to his wounds especially at the time of dressing changes. PHYSICAL EXAMINATION: Blood pressure is 129/79, pulse of 109, temperature is 97.8, he is 93% on room air. General description is a middle-aged male up in the chair in no distress. Respiratory system: Unlabored breathing, clear to auscultation anteriorly. Heart S1, S2. Regular rate and rhythm. Abdomen soft, no tenderness. Left arm is currently dressed up. No obvious drainage on the dressing. LABS: Hemoglobin is 15.1, white count 14.8, creatinine 0.70. Culture positive for Acinetobacter, Enterobacter and Pseudomonas, all sensitive to cefepime and Cipro. DIAGNOSTIC IMPRESSION AND PLAN: Patient with left arm IV site infection. IV has been discontinued. Blood cultures remain negative. Patient is covered with cefepime. Finish therapy with oral Cipro. Continue supportive care. MMODL / IJN: [id number] /
[2020-12-04] MEDS: MIRTAZAPINE 15 MG TAB PO SCH (21:33)
[2020-12-05] MEDS: QUEtiapine 100 MG TAB PO SCH ×2 (00:24→20:32)
[2020-12-05] MEDS: HEPARIN SODIUM,PORCINE/PF 5,000 UNIT/0.5 ML SYRINGE SQ SCH ×3 (00:26→16:30)
[2020-12-05] MEDS: HYDROmorphone 1 MG/ML 1 ML SYRINGE IVP PRN ×3 (01:12→08:43)
[2020-12-05] MEDS: SODIUM CHLORIDE 0.9% 1,000 ML IV SCH ×2 (05:32→13:55)
[2020-12-05] MEDS: CEFEPIME 2 GM in SODIUM CHLORIDE 0.9% 100 ML IVPB SCH ×3 (05:34→22:02)
[2020-12-05] MEDS: HYDROcodone/APAP 7.5-325MG 1 EACH TAB PO PRN ×4 (07:02→22:31)
[2020-12-05] MEDS: PANTOPRAZOLE 40 MG TABLET PO SCH (07:31)
[2020-12-05] MEDS: THIAMINE 100 MG TAB PO SCH ×2 (07:31→16:29)
[2020-12-05] MEDS: IPRATROPIUM-ALBUTEROL 3 ML NEB INHALATION SCH ×4 (08:02→20:34)
[2020-12-05] MEDS: NICOTINE 21MG/24HR PATCH TRANSDERM SCH (10:06)
[2020-12-05] MEDS: busPIRone HCl 5 MG TAB PO SCH ×2 (10:07→20:32)
[2020-12-05] MEDS: DOCUSATE 100 MG CAP PO SCH ×2 (10:07→20:33)
[2020-12-05] MEDS: MONTELUKAST 10 MG TAB PO SCH (10:08)
[2020-12-05] MEDS: HYDROPHILIC CREAM 180 GM TUBE TOPICAL SCH (10:14)
[2020-12-05] MEDS: LEVOMILNACIPRAN HCL 20 MG PO SCH (10:14)
[2020-12-05 10:34] LABS: HGB 13.1 gm/dL (13.0-17.5); MCH 30.7 pg (25.0-35.0); MCHC 32.8 g/dL (31.0-37.0); MCV 93.7 fL (80.0-100.0); Mean Platelet Volume 7.6; Platelet Count 447 k/uL (150-450); RBC 4.26 m/uL (4.30-5.90); RDW 13.3 % (11.5-15.5); WBC 12.3 k/uL (3.8-10.6)
[2020-12-05] MEDS: HYDROmorphone 0.5 MG/0.5 ML SYRINGE IVP PRN (12:00)
[2020-12-05] MEDS: SENNOSIDES 8.6 MG TAB PO SCH (12:10)
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
[2020-12-05] MEDS: GABAPENTIN 300 MG CAP PO SCH ×2 (16:30→22:02)
--- NOTE | 2020-12-05 17:24 | PN ---
PROGRESS NOTE DATE OF SERVICE: 12/05/2020 REASON FOR FOLLOWUP: Left antecubital fossa IV site infection. INTERVAL HISTORY: Patient is afebrile. The patient is breathing comfortably. The patient still complaining of pain at the time of dressing changes and other pain medication to be adjusted. The patient denies having any worsening pain to the left antecubital fossa area. No abdominal pain. No diarrhea. PHYSICAL EXAMINATION: Blood pressure 113/73, pulse 103. Temperature 98.9. He is 96% on room air. General description is a middle-aged male up in the chair in no distress. Respiratory system: Unlabored breathing, clear to auscultation anteriorly. Heart S1, S2. Regular rate. Abdomen soft, no tenderness. Left arm is currently dressed. No obvious drainage on the dressing. LABS: Hemoglobin 13.1 DIAGNOSTIC IMPRESSION AND PLAN: 1. Patient with left antecubital fossa IV site infection in this patient. IV has been discontinued. Culture with multiple pathogens, covered with cefepime. Plan to finish therapy with oral Cipro and close outpatient followup. 2. Multiple wounds being followed by the Wound Care team. MMODL / IJN: [id number] / ZARIA
[2020-12-05] MEDS: ACETAMINOPHEN TAB 325 MG TAB PO PRN (20:33)
[2020-12-05] MEDS: MIRTAZAPINE 15 MG TAB PO SCH (20:34)
[2020-12-06] MEDS: hydrOXYzine pamoate 25 MG CAP PO PRN ×3 (00:01→23:56)
[2020-12-06] MEDS: HEPARIN SODIUM,PORCINE/PF 5,000 UNIT/0.5 ML SYRINGE SQ SCH ×3 (00:02→16:12)
[2020-12-06] MEDS ORDERED: HYDROmorphone 0.5 MG/0.5 ML SYRINGE IVP STA (00:09)
[2020-12-06] MEDS: SODIUM CHLORIDE 0.9% 1,000 ML IV SCH ×2 (00:32→08:46)
[2020-12-06] MEDS: HYDROcodone/APAP 7.5-325MG 1 EACH TAB PO PRN (04:48)
[2020-12-06] MEDS: CEFEPIME 2 GM in SODIUM CHLORIDE 0.9% 100 ML IVPB SCH ×3 (06:48→22:54)
[2020-12-06] MEDS: THIAMINE 100 MG TAB PO SCH ×2 (07:52→16:12)
[2020-12-06] MEDS: PANTOPRAZOLE 40 MG TABLET PO SCH (07:52)
[2020-12-06] MEDS: busPIRone HCl 5 MG TAB PO SCH ×2 (08:00→20:40)
[2020-12-06] MEDS: SENNOSIDES 8.6 MG TAB PO SCH (08:00)
[2020-12-06] MEDS: MONTELUKAST 10 MG TAB PO SCH (08:00)
[2020-12-06] MEDS: LEVOMILNACIPRAN HCL 20 MG PO SCH (08:01)
[2020-12-06] MEDS: NICOTINE 21MG/24HR PATCH TRANSDERM SCH (08:01)
[2020-12-06] MEDS: GABAPENTIN 300 MG CAP PO SCH ×3 (08:01→22:54)
[2020-12-06] MEDS: DOCUSATE 100 MG CAP PO SCH ×2 (08:01→20:40)
[2020-12-06] MEDS: HYDROPHILIC CREAM 180 GM TUBE TOPICAL SCH (08:05)
[2020-12-06] MEDS: IPRATROPIUM-ALBUTEROL 3 ML NEB INHALATION SCH ×4 (08:33→20:46)
[2020-12-06 09:33] LABS: Basophils # (A) 0.1 k/uL (0-0.2); Basophils % (A) 1 %; Eosinophils # (A) 0.2 k/uL (0-0.7); Eosinophils % (A) 1 %; HCT 42.3 % (39.0-53.0); HGB 13.9 gm/dL (13.0-17.5); Lymphocytes # (A) 2.3 k/uL (1.0-4.8); Lymphocytes % (A) 16 %; MCH 30.5 pg (25.0-35.0); MCHC 32.8 g/dL (31.0-37.0); Mean Platelet Volume 7.2; Monocytes # (A) 0.6 k/uL (0-1.0); Monocytes % (A) 4 %; Neutrophils # (A) 10.7 k/uL (1.3-7.7); Neutrophils % (A) 76 %; Platelet Count 520 k/uL (150-450); RBC 4.55 m/uL (4.30-5.90); RDW 13.7 % (11.5-15.5); WBC 14.1 k/uL (3.8-10.6)
[2020-12-06] MEDS: MELOXICAM 7.5 MG TAB PO SCH (11:01)
[2020-12-06] MEDS: HYDROcodone/APAP 10-325MG 1 EACH TAB PO PRN ×3 (11:01→22:54)
[2020-12-06] MEDS: HYDROmorphone 0.5 MG/0.5 ML SYRINGE IVP PRN (13:09)
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
[2020-12-06] MEDS ORDERED: HYDROcodone/APAP 5-325MG 1 EACH TAB PO PRN (14:27)
[2020-12-06] MEDS ORDERED: HYDROcodone/APAP 10-325MG 1 EACH TAB PO PRN (14:27)
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
--- NOTE | 2020-12-06 16:28 | PN ---
PROGRESS NOTE DATE OF SERVICE: 12/06/2020. REASON FOR FOLLOW UP: Left antecubital fossa IV site infection. INTERVAL HISTORY: Patient is afebrile. The patient is breathing comfortably. The patient denies having any chest pain, cough, no abdominal pain. Overall pain and discomfort to the left antecubital fossa has been resolved. PHYSICAL EXAMINATION: Blood pressure 124/74 with a pulse of 85. Temperature is 97.9. General description is a middle-aged male up in the chair in no distress. Respiratory system: Unlabored breathing, clear to auscultation anteriorly. Heart S1, S2. Regular rate and rhythm. Abdomen soft, no tenderness. Left arm antecubital IV site swelling and redness resolved. No induration or drainage. LABS: White count slightly elevated at 14.1. Culture showing Enterobacter and Pseudomonas. DIAGNOSTIC IMPRESSION AND PLAN: Patient with left arm IV site infection. Blood culture has been negative. Plan is for oral Cipro on discharge. White count mildly elevated and monitor closely. Continue supportive care. MMODL / IJN: [id number] /
[2020-12-06] MEDS: MIRTAZAPINE 15 MG TAB PO SCH (20:41)
[2020-12-06] MEDS: QUEtiapine 100 MG TAB PO SCH (20:41)
[2020-12-07] MEDS: HEPARIN SODIUM,PORCINE/PF 5,000 UNIT/0.5 ML SYRINGE SQ SCH ×4 (00:56→22:24)
[2020-12-07] MEDS: HYDROcodone/APAP 10-325MG 1 EACH TAB PO PRN ×4 (05:22→22:23)
[2020-12-07] MEDS: CEFEPIME 2 GM in SODIUM CHLORIDE 0.9% 100 ML IVPB SCH ×3 (07:16→22:20)
[2020-12-07] MEDS: IPRATROPIUM-ALBUTEROL 3 ML NEB INHALATION SCH ×4 (07:50→19:54)
[2020-12-07] MEDS: SODIUM CHLORIDE 0.9% 1,000 ML IV SCH ×3 (08:05→17:15)
[2020-12-07] MEDS: NICOTINE 21MG/24HR PATCH TRANSDERM SCH (08:06)
[2020-12-07] MEDS: MELOXICAM 7.5 MG TAB PO SCH (08:07)
[2020-12-07] MEDS: SENNOSIDES 8.6 MG TAB PO SCH (08:07)
[2020-12-07] MEDS: THIAMINE 100 MG TAB PO SCH ×2 (08:07→17:15)
[2020-12-07] MEDS: GABAPENTIN 300 MG CAP PO SCH ×3 (08:07→22:23)
[2020-12-07] MEDS: DOCUSATE 100 MG CAP PO SCH ×2 (08:08→20:35)
[2020-12-07] MEDS: PANTOPRAZOLE 40 MG TABLET PO SCH (08:08)
[2020-12-07] MEDS: MONTELUKAST 10 MG TAB PO SCH (08:08)
[2020-12-07] MEDS: busPIRone HCl 5 MG TAB PO SCH ×2 (08:08→20:35)
[2020-12-07] MEDS: HYDROPHILIC CREAM 180 GM TUBE TOPICAL SCH (08:09)
[2020-12-07] MEDS ORDERED: MELOXICAM 7.5 MG TAB PO SCH (09:00)
[2020-12-07] MEDS: LEVOMILNACIPRAN HCL 20 MG PO SCH (14:05)
[2020-12-07] MEDS: HYDROmorphone 0.5 MG/0.5 ML SYRINGE IVP PRN (14:06)
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
--- NOTE | 2020-12-07 16:38 | CT ---
EXAMINATION TYPE: CT lower extremity RT w con DATE OF EXAM: 12/07/2020 COMPARISON: None HISTORY: Extensive leg wound, evaluate underlying tissues. CT DLP: 731 mGycm Automated exposure control for dose reduction was used. CONTRAST: Performed with IV Contrast, patient injected with 100 mL of Isovue 300. Images obtained from the mid femur to the bottom of the foot with IV contrast. There is subcutaneous edema lateral to the rectus femoris muscle of the thigh. Fluid measures up to 1 .6 cm in thickness. There is subcutaneous edema over the lateral aspect of the lower femur. There is subcutaneous patchy edema over the lateral lower leg. There is also fluid adjacent to the calf muscle s over the lateral lower leg measuring up to 7 mm in thickness. There is subcutaneous edema on the do rsum of the foot. This measures 10 mm maximum thickness. There is soft tissue subcutaneous edema arou nd the ankle. I see no bony destructive process. There is no evidence of a fracture. Knee joint spaces are normal. There are small Achilles calcaneal spur. The tibia and fibula appear intact. Skull femur is intact. T here is no sign of knee joint effusion. I see no evidence of a mass within the muscle. There is khoi l contrast opacification of the distal femoral artery and the popliteal artery and the tibial artery trifurcation. There is arterial flow in the dorsalis pedis artery and the posterior tibial artery at the ankle. IMPRESSION: Subcutaneous edema and fluid involving the right leg as above extending from the mid thigh to the rep ort. The proximal extent of the edema is not evaluated. No drainable fluid collection. No evidence of a soft tissue mass.
[2020-12-07] MEDS: hydrOXYzine pamoate 25 MG CAP PO PRN (19:44)
[2020-12-07] MEDS: QUEtiapine 100 MG TAB PO SCH (20:35)
[2020-12-07] MEDS: MIRTAZAPINE 15 MG TAB PO SCH (20:35)
[2020-12-07] MEDS ORDERED: KETOROLAC 15 MG/ML 1 ML VIAL IVP SCH (21:00)
[2020-12-07] MEDS: KETOROLAC 15 MG/ML 1 ML VIAL IVP PRN (21:08)
[2020-12-08] MEDS: SODIUM CHLORIDE 0.9% 1,000 ML IV SCH ×3 (03:29→21:41)
[2020-12-08] MEDS: HYDROcodone/APAP 10-325MG 1 EACH TAB PO PRN ×3 (05:09→19:54)
[2020-12-08] MEDS: CEFEPIME 2 GM in SODIUM CHLORIDE 0.9% 100 ML IVPB SCH ×3 (05:09→21:42)
[2020-12-08] MEDS: IPRATROPIUM-ALBUTEROL 3 ML NEB INHALATION SCH ×4 (07:30→20:56)
[2020-12-08] MEDS: busPIRone HCl 5 MG TAB PO SCH ×2 (08:11→21:41)
[2020-12-08] MEDS: LEVOMILNACIPRAN HCL 20 MG PO SCH (08:11)
[2020-12-08] MEDS: THIAMINE 100 MG TAB PO SCH ×2 (08:11→17:56)
[2020-12-08] MEDS: HEPARIN SODIUM,PORCINE/PF 5,000 UNIT/0.5 ML SYRINGE SQ SCH ×2 (08:12→17:56)
[2020-12-08] MEDS: DOCUSATE 100 MG CAP PO SCH ×2 (08:12→21:42)
[2020-12-08] MEDS: MELOXICAM 7.5 MG TAB PO SCH (08:12)
[2020-12-08] MEDS: KETOROLAC 15 MG/ML 1 ML VIAL IVP PRN ×2 (08:12→15:43)
[2020-12-08] MEDS: SENNOSIDES 8.6 MG TAB PO SCH (08:12)
[2020-12-08] MEDS: NICOTINE 21MG/24HR PATCH TRANSDERM SCH (08:12)
[2020-12-08] MEDS: GABAPENTIN 300 MG CAP PO SCH ×3 (08:12→21:42)
[2020-12-08] MEDS: PANTOPRAZOLE 40 MG TABLET PO SCH (08:13)
[2020-12-08] MEDS: MONTELUKAST 10 MG TAB PO SCH (08:13)
[2020-12-08] MEDS: HYDROPHILIC CREAM 180 GM TUBE TOPICAL SCH (08:13)
[2020-12-08 09:36] LABS: HCT 38.5 % (39.6-50.0); HGB 12.3 g/dL (13.0-17.0); MCH 30.2 pg (27.0-32.0); MCHC 31.9 g/dL (32.0-37.0); MCV 94.6 fL (80.0-97.0); Mean Platelet Volume 10.4 fL (9.5-12.2); Platelet Count 443 X 10*3/uL (140-440); RBC 4.07 X 10*6/uL (4.40-5.60); RDW 13.5 % (11.5-14.5); WBC 13.25 X 10*3/uL (4.50-10.00)
[2020-12-08 10:01] LABS: African American GFR (CKD) 132.3 (60.0-200.0); Anion Gap 7.7 mmol/L (4.00-12.00); BUN/Creat Ratio 26.25 Ratio (12.00-20.00); Calcium 9.2 mg/dL (8.7-10.3); Carbon Dioxide 21.3 mmol/L (21.6-31.8); Non-African American GFR(CKD) 114.1 (60.0-200.0); Potassium 4.3 mmol/L (3.5-5.5)
[2020-12-08] MEDS: HYDROmorphone 0.5 MG/0.5 ML SYRINGE IVP PRN (13:46)
[2020-12-08] MEDS: hydrOXYzine pamoate 25 MG CAP PO PRN ×2 (13:46→19:54)
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
--- NOTE | 2020-12-08 18:03 | PN ---
PROGRESS NOTE DATE OF SERVICE: 12/08/2020 REASON FOR FOLLOWUP: 1. Left arm IV site infection. 2. Right leg wound. INTERVAL HISTORY: The patient is afebrile. The patient is feeling better today. Overall pain and discomfort to the right leg has decreased. No chest pain, shortness of breath or cough. No abdominal pain or diarrhea. PHYSICAL EXAMINATION: Blood pressure 142/98 with a pulse of 83, temperature 98.4. He is 94% on room air. General description is a middle-aged male up in the chair in no distress. Respiratory system: Unlabored breathing, clear to auscultation anteriorly. Heart S1, S2. Regular rate and rhythm. Abdomen soft, no tenderness. Left arm IV site swelling and redness has resolved. LABS: Hemoglobin 12.1, white count 13.5. BUN of 21, creatinine 0.8. DIAGNOSTIC IMPRESSION AND PLAN: 1. Patient with left arm IV site infection that has been adequately treated. Repeat culture has been negative. Cellulitis has resolved. Antibiotics can be safely discontinued on discharge. 2. Patient with right leg wound with no evidence of any cellulitis. CT did not show any evidence of any abscess. Continue local wound care as ordered. MMODL / IJN: [id number] /
[2020-12-08] MEDS: QUEtiapine 100 MG TAB PO SCH (21:42)
[2020-12-08] MEDS: MIRTAZAPINE 15 MG TAB PO SCH (21:45)
[2020-12-09] MEDS: HYDROcodone/APAP 10-325MG 1 EACH TAB PO PRN ×3 (02:09→17:20)
[2020-12-09] MEDS: CEFEPIME 2 GM in SODIUM CHLORIDE 0.9% 100 ML IVPB SCH ×3 (05:07→21:16)
[2020-12-09] MEDS: IPRATROPIUM-ALBUTEROL 3 ML NEB INHALATION SCH ×4 (08:06→20:43)
[2020-12-09] MEDS: HEPARIN SODIUM,PORCINE/PF 5,000 UNIT/0.5 ML SYRINGE SQ SCH ×4 (08:44→23:09)
[2020-12-09] MEDS: MONTELUKAST 10 MG TAB PO SCH (08:45)
[2020-12-09] MEDS: PANTOPRAZOLE 40 MG TABLET PO SCH (08:45)
[2020-12-09] MEDS: MELOXICAM 7.5 MG TAB PO SCH (08:45)
[2020-12-09] MEDS: THIAMINE 100 MG TAB PO SCH ×2 (08:45→17:19)
[2020-12-09] MEDS: busPIRone HCl 5 MG TAB PO SCH ×2 (08:45→21:15)
[2020-12-09] MEDS: GABAPENTIN 300 MG CAP PO SCH ×3 (08:45→21:16)
[2020-12-09] MEDS: HYDROPHILIC CREAM 180 GM TUBE TOPICAL SCH (08:46)
[2020-12-09] MEDS: SENNOSIDES 8.6 MG TAB PO SCH (08:46)
[2020-12-09] MEDS: DOCUSATE 100 MG CAP PO SCH ×2 (08:46→21:13)
[2020-12-09] MEDS: NICOTINE 21MG/24HR PATCH TRANSDERM SCH (08:47)
[2020-12-09] MEDS: LEVOMILNACIPRAN HCL 20 MG PO SCH (08:47)
[2020-12-09] MEDS: HYDROmorphone 0.5 MG/0.5 ML SYRINGE IVP PRN (13:09)
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
[2020-12-09] MEDS: SODIUM CHLORIDE 0.9% 1,000 ML IV SCH (19:30)
[2020-12-09] MEDS: MIRTAZAPINE 15 MG TAB PO SCH (21:15)
[2020-12-09] MEDS: QUEtiapine 100 MG TAB PO SCH (21:16)
[2020-12-10] MEDS: SODIUM CHLORIDE 0.9% 1,000 ML IV SCH ×4 (00:15→23:31)
[2020-12-10] MEDS: CEFEPIME 2 GM in SODIUM CHLORIDE 0.9% 100 ML IVPB SCH ×3 (05:10→21:22)
[2020-12-10] MEDS ORDERED: IV FLUID CONTINUATION 300 ML IV ONE (07:19)
[2020-12-10] MEDS ORDERED: NEOSTIGMINE 1 MG/ML 10 ML VIAL ONE (07:30)
[2020-12-10] MEDS ORDERED: SUCCINYLCHOLINE CHLORIDE VIAL 200 MG/10 ML VIAL IV ONE (07:30)
[2020-12-10] MEDS ORDERED: HYDROmorphone (PF) 1 MG/ML ONE (07:30)
[2020-12-10] MEDS ORDERED: ALBUTEROL INHALER 60 PUFF/8 GM INHALER (MHU) INHALATION ONE (07:30)
[2020-12-10] MEDS ORDERED: ROCURONIUM 10 MG/ML (5 ML VIAL) IV ONE (07:30)
[2020-12-10] MEDS ORDERED: GLYCOPYRROLATE 0.2 MG/ML 2 ML VIAL ONE (07:30)
[2020-12-10] MEDS ORDERED: fentaNYL (PF) 50 MCG/ML 2 ML AMP ONE (07:30)
[2020-12-10] MEDS ORDERED: KETAMINE 10 MG/ML 20 ML VIAL ONE (07:30)
[2020-12-10] MEDS ORDERED: PROPOFOL 10 MG/ML 20 ML VIAL IV ONE (07:30)
[2020-12-10] MEDS ORDERED: LIDOCAINE 1% INJ 10MG/ML (20 ML MDV) ONE (07:30)
[2020-12-10] MEDS ORDERED: MIDAZOLAM 2 MG/2 ML VIAL ONE (07:30)
--- NOTE | 2020-12-10 07:44 | PN ---
PROGRESS NOTE DATE OF SERVICE: 12/09/2020 REASON FOR FOLLOWUP: 1. Left arm IV site infection. 2. Right leg and right elbow area wound. INTERVAL HISTORY: Patient is afebrile, has been complaining of more pain to the right elbow area. Denies having any chest pain. No shortness of breath or cough. No abdominal pain. No diarrhea. PHYSICAL EXAMINATION: Blood pressure 135/93 with a pulse of 103. Temperature 98.3. He is 95% on room air. General description is a middle-aged male up in the bed in no distress. Respiratory system: Unlabored breathing, clear to auscultation anteriorly. Heart S1, S2. Regular rate and rhythm. Abdomen soft. The right elbow area wound has no slough tissue. Right leg wound is currently dressed. No drainage on the dressing. DIAGNOSTIC IMPRESSION AND PLAN: 1. Patient with left arm IV site infection with no bacteremia. Blood culture has been negative. Underlying cellulitis has been adequately treated and cefepime to continue. 2. Patient with right elbow wound with no slough tissue. Local wound care with Santyl followed by moist dressing to be changed daily. 3. Continue supportive care. MMODL / IJN: [id number] /
[2020-12-10] MEDS: IPRATROPIUM-ALBUTEROL 3 ML NEB INHALATION SCH ×4 (08:11→22:29)
[2020-12-10] MEDS ORDERED: LIDOCAINE 1%-EPI 1:100,000 20 ML VIAL SQ ONE (08:20)
[2020-12-10] MEDS ORDERED: BACITRACIN ZINC 500 UNIT/GM OINT 28.4 GM TUBE TOPICAL ONE (08:20)
[2020-12-10] MEDS ORDERED: VANCOMYCIN 1,000 MG VIAL MISCELLANE ONE (08:29)
[2020-12-10] MEDS ORDERED: ceFAZolin 3,000 MG in SODIUM CHLORIDE 0.9% IRRIGATIO 3,000 ML IRRIGATION ONE (08:30)
[2020-12-10] MEDS ORDERED: LACTATED RINGERS 1,000 ML IV ONE (08:31)
[2020-12-10] MEDS ORDERED: HYDROmorphone 0.5 MG/0.5 ML SYRINGE IVP ONE ×3 (09:10→09:30)
[2020-12-10 09:39] LABS: Basophils # (A) 0.09 X 10*3/uL (0.00-0.10); Basophils % (A) 0.8 %; Eosinophils # (A) 0.19 X 10*3/uL (0.04-0.35); Eosinophils % (A) 1.7 %; HCT 41.5 % (39.6-50.0); HGB 12.9 g/dL (13.0-17.0); Lymphocytes # (A) 2.76 X 10*3/uL (0.90-5.00); Lymphocytes % (A) 24.6 %; MCH 29.3 pg (27.0-32.0); MCHC 31.1 g/dL (32.0-37.0); MCV 94.3 fL (80.0-97.0); Mean Platelet Volume 10.5 fL (9.5-12.2); Monocytes # (A) 0.95 X 10*3/uL (0.20-1.00); Monocytes % (A) 8.5 %; Neutrophils % (A) 63.2 %; Platelet Count 426 X 10*3/uL (140-440); RDW 13.3 % (11.5-14.5); WBC 11.23 X 10*3/uL (4.50-10.00)
[2020-12-10] MEDS: busPIRone HCl 5 MG TAB PO SCH ×2 (10:39→21:22)
[2020-12-10] MEDS: HEPARIN SODIUM,PORCINE/PF 5,000 UNIT/0.5 ML SYRINGE SQ SCH ×3 (10:39→23:29)
[2020-12-10] MEDS: NICOTINE 21MG/24HR PATCH TRANSDERM SCH (10:39)
[2020-12-10] MEDS: HYDROcodone/APAP 10-325MG 1 EACH TAB PO PRN ×2 (10:40→21:59)
[2020-12-10] MEDS: PANTOPRAZOLE 40 MG TABLET PO SCH (10:40)
[2020-12-10] MEDS: THIAMINE 100 MG TAB PO SCH ×2 (10:40→16:19)
[2020-12-10] MEDS: MELOXICAM 7.5 MG TAB PO SCH (10:40)
[2020-12-10] MEDS: GABAPENTIN 300 MG CAP PO SCH ×3 (10:40→21:23)
[2020-12-10] MEDS: MONTELUKAST 10 MG TAB PO SCH (10:40)
[2020-12-10] MEDS: COLLAGENASE 250 UNIT/GM OINTMENT 30 GM TUBE TOPICAL SCH (11:12)
[2020-12-10] MEDS: DOCUSATE 100 MG CAP PO SCH ×2 (11:12→21:23)
[2020-12-10] MEDS: LEVOMILNACIPRAN HCL 20 MG PO SCH (11:13)
[2020-12-10] MEDS: SENNOSIDES 8.6 MG TAB PO SCH (11:13)
[2020-12-10] MEDS: HYDROPHILIC CREAM 180 GM TUBE TOPICAL SCH (11:13)
--- NOTE | 2020-12-10 12:22 | P.PN ---
Progress Note - Text Progress Note Date: 12/10/20 brief postop: patient seen and examined PACU use doing well. Some pain in right elbow otherwise no issues. He is getting ready to go to the floor.
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
[2020-12-10] MEDS: HYDROmorphone 0.5 MG/0.5 ML SYRINGE IVP PRN (13:22)
[2020-12-10 14:21] VITALS: RESP 16
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
[2020-12-10] MEDS ORDERED: HYDROmorphone 0.5 MG/0.5 ML SYRINGE IVP STA (15:50)
[2020-12-10] MEDS: MIRTAZAPINE 15 MG TAB PO SCH (21:59)
[2020-12-10] MEDS: QUEtiapine 100 MG TAB PO SCH (21:59)
--- NOTE | 2020-12-10 23:05 | PN ---
PROGRESS NOTE DATE OF SERVICE: 12/10/2020 REASON FOR FOLLOWUP: 1. Left arm IV site infection. 2. Right elbow and right leg wound. INTERVAL HISTORY: Patient is afebrile. The patient is breathing comfortably. The patient is status post debridement of his wound by Ortho. The patient has tolerated the procedure. No chest pain or cough. No abdominal pain or diarrhea. PHYSICAL EXAMINATION: Blood pressure 124/76, pulse 101, temperature 98. He is 98% on room air. General description is a middle-aged male up in the chair in no distress. Respiratory system: Unlabored breathing, clear to auscultation anteriorly. Heart S1, S2. Regular rate and rhythm. Abdomen soft, no tenderness. Extremities are currently dressed. No drainage on the dressing. LABS: Hemoglobin is 12.8, white count 11.23. Creatinine 0.8. DIAGNOSTIC IMPRESSION AND PLAN: 1. Patient with left arm IV site infection with no evidence of any bacteremia. Has received adequate antibiotic therapy and cefepime can be discontinued discharge. 2. Patient with right upper and lower extremity wound status post debridement. Wound Care is on the other team. Continue wound care per them. MMODL / IJN: [id number] /
[2020-12-11] MEDS: CEFEPIME 2 GM in SODIUM CHLORIDE 0.9% 100 ML IVPB SCH ×2 (05:31→15:15)
[2020-12-11] MEDS: HYDROcodone/APAP 10-325MG 1 EACH TAB PO PRN ×2 (05:31→10:46)
[2020-12-11] MEDS: HEPARIN SODIUM,PORCINE/PF 5,000 UNIT/0.5 ML SYRINGE SQ SCH (08:10)
[2020-12-11] MEDS: NICOTINE 21MG/24HR PATCH TRANSDERM SCH (08:11)
[2020-12-11] MEDS: PANTOPRAZOLE 40 MG TABLET PO SCH (08:11)
[2020-12-11] MEDS: MELOXICAM 7.5 MG TAB PO SCH (08:11)
[2020-12-11] MEDS: GABAPENTIN 300 MG CAP PO SCH (08:12)
[2020-12-11] MEDS: busPIRone HCl 5 MG TAB PO SCH (08:12)
[2020-12-11] MEDS: THIAMINE 100 MG TAB PO SCH (08:12)
[2020-12-11] MEDS: MONTELUKAST 10 MG TAB PO SCH (08:12)
[2020-12-11] MEDS: SENNOSIDES 8.6 MG TAB PO SCH (08:13)
[2020-12-11] MEDS: LEVOMILNACIPRAN HCL 20 MG PO SCH (08:13)
[2020-12-11] MEDS: DOCUSATE 100 MG CAP PO SCH (08:13)
[2020-12-11] MEDS: SODIUM CHLORIDE 0.9% 1,000 ML IV SCH (08:22)
[2020-12-11] MEDS: HYDROPHILIC CREAM 180 GM TUBE TOPICAL SCH (08:23)
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
[2020-12-11] MEDS: IPRATROPIUM-ALBUTEROL 3 ML NEB INHALATION SCH ×3 (08:57→16:19)
[2020-12-11 09:34] LABS: Eosinophils # (A) 0.16 X 10*3/uL (0.04-0.35); Eosinophils % (A) 1.6 %; HCT 38.2 % (39.6-50.0); HGB 12.3 g/dL (13.0-17.0); Lymphocytes # (A) 3.19 X 10*3/uL (0.90-5.00); Lymphocytes % (A) 31.5 %; MCHC 32.2 g/dL (32.0-37.0); MCV 93.2 fL (80.0-97.0); Mean Platelet Volume 10.2 fL (9.5-12.2); Monocytes # (A) 0.79 X 10*3/uL (0.20-1.00); Monocytes % (A) 7.8 %; Neutrophils # (A) 5.84 X 10*3/uL (1.80-7.70); Neutrophils % (A) 57.5 %; Platelet Count 429 X 10*3/uL (140-440); RDW 13.4 % (11.5-14.5); WBC 10.14 X 10*3/uL (4.50-10.00)
[2020-12-11] MEDS: COLLAGENASE 250 UNIT/GM OINTMENT 30 GM TUBE TOPICAL SCH (11:06)
--- NOTE | 2020-12-11 14:17 | PN ---
PROGRESS NOTE DATE OF SERVICE: December 11, 2020. REASON FOR FOLLOWUP: Left antecubital fossa IV site infection with multiple wounds. INTERVAL HISTORY: Patient is currently afebrile. He is breathing comfortably. No chest pain or cough. No abdominal pain. Overall pain and discomfort to the right arm and right leg has decreased. PHYSICAL EXAMINATION: Blood pressure 110/71, pulse of 79, temp is 97.8. He is 93% on room air. General description is a young male up in the bed in no distress. Respiratory system: Unlabored breathing. Clear to auscultation anteriorly. Left IV site looks healed with no induration. No swelling. No redness. Right upper extremity and right lower extremity is currently dressed. LABS: Hemoglobin is 12.1, Blood culture remains to be negative. DIAGNOSTIC IMPRESSION AND PLAN: Patient with left arm IV site infection with Enterobacter pseudomonas for which the patient has received more than 10 or 12 days of IV Vanco which should be more than enough. Unfortunately the patient is on amiodarone that will contraindicate the use of oral Cipro in the outpatient setting as recommended antibiotic on discharge. Local care to continue per the wound care team. MMODL / IJN: [id number] / ZARIA
[2020-12-11 14:32] VITALS: BP 136/84; PULSE 93; TEMP 98.5
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
== END 2020-12-11 15:49 | disposition home health service (06) | DRG 605 ==
LOC: EC 23:35 → 6NMEDSUR 11-26 02:21 → OBSVTOIN 11-26 13:35 → 6NMEDSUR 11-26 15:11 → 4SSUR 11-26 16:14
PROVIDERS: ADMIT Surgery; ATTEND Surgery
PROC: 05HF33Z Insertion of Infusion Device into Left Cephalic Vein, Percutaneous Approach (ICD-10-PCS; 2020-12-02 17:20)
PROC: 0HDKXZZ Extraction of Right Lower Leg Skin, External Approach (ICD-10-PCS; principal; 2020-12-10 07:33)
PROC: 0JDG3ZZ Extraction of Right Lower Arm Subcutaneous Tissue and Fascia, Percutaneous Approach (ICD-10-PCS; principal; 2020-12-10 07:33)
DX: S20.319A Abrasion of unspecified front wall of thorax, initial encounter (principal); J98.11 Atelectasis; T80.29XA Infection following other infusion, transfusion and therapeutic injection, initial encounter; L03.114 Cellulitis of left upper limb; F31.30 Bipolar disorder, current episode depressed, mild or moderate severity, unspecified; R16.0 Hepatomegaly, not elsewhere classified; E66.01 Morbid (severe) obesity due to excess calories; G89.11 Acute pain due to trauma; S92.511A Displaced fracture of proximal phalanx of right lesser toe(s), initial encounter for closed fracture; S80.811A Abrasion, right lower leg, initial encounter; S50.811A Abrasion of right forearm, initial encounter; S30.811A Abrasion of abdominal wall, initial encounter; S50.812A Abrasion of left forearm, initial encounter; B96.89 Other specified bacterial agents as the cause of diseases classified elsewhere; B96.5 Pseudomonas (aeruginosa) (mallei) (pseudomallei) as the cause of diseases classified elsewhere; J45.909 Unspecified asthma, uncomplicated; R09.02 Hypoxemia; M54.2 Cervicalgia; M54.5 Low back pain; R26.2 Difficulty in walking, not elsewhere classified; G47.33 Obstructive sleep apnea (adult) (pediatric); Y90.0 Blood alcohol level of less than 20 mg/100 ml; F41.9 Anxiety disorder, unspecified; Z68.39 Body mass index [BMI] 39.0-39.9, adult; F17.210 Nicotine dependence, cigarettes, uncomplicated; Z71.6 Tobacco abuse counseling; Z79.899 Other long term (current) drug therapy; Z87.19 Personal history of other diseases of the digestive system; Z87.11 Personal history of peptic ulcer disease; Z87.39 Personal history of other diseases of the musculoskeletal system and connective tissue; Z98.890 Other specified postprocedural states; Z71.3 Dietary counseling and surveillance; Y84.8 Other medical procedures as the cause of abnormal reaction of the patient, or of later complication, without mention of misadventure at the time of the procedure; Z91.030 Bee allergy status; Z91.018 Allergy to other foods; V20.4XXA Motorcycle driver injured in collision with pedestrian or animal in traffic accident, initial encounter; Y92.410 Unspecified street and highway as the place of occurrence of the external cause
CPT/HCPCS: 36410; 36415; 70450; 71045; 71260; 72125; 72170; 74177; 76937; 80048; 80053; 80306; 80320; 81003; 82550; 82565; 83605; 84484; 85025; 85027; 85610; 85730; 86140; 87040; 87070; 87075; 87077; 87186; 87205; 90471; 90715; 93005; 94640; 94660; 94664; 96361; 96365; 96367; 96372; 96375; 96376; 99285

== ENCOUNTER → 2021-03-04 | Outpatient (CLI) | payer BC ==
--- NOTE | 2021-03-05 02:00 | MR ---
EXAMINATION TYPE: MR foot RT wo con DATE OF EXAM: 03/04/2021 COMPARISON: None HISTORY: Pain,swelling, limited movement, clicking in right foot Multiplanar multiecho imaging of the right foot without contrast. The metatarsals are intact. The toes appear intact. There is minor spurring at the anterior talonavic ular joint. The medial and lateral flexor tendons of the ankle appear intact. There is slight increas ed soft tissue fluid signal at the lateral and plantar aspect of the fifth metatarsal head. There is some increased signal on the T2 images in the proximal phalanx of the little toe that is consistent w ith a healing nondisplaced fracture evident on the old right foot x-ray of 11/26/2020. There is no rachel dence of a soft tissue mass. The plantar fascia appears intact. IMPRESSION: Healing fracture of the proximal phalanx of the little toe without change. Mild edema around the fifth metatarsal head. No acute fracture seen. .
== END | disposition home or self-care (01) ==
LOC: RADMRIMAIN 11:09
PROVIDERS: ATTEND Orthopaedic Surgery
DX: S92.911A Unspecified fracture of right toe(s), initial encounter for closed fracture (principal); X58.XXXA Exposure to other specified factors, initial encounter